=== PATIENT | male | born 1955 | race Caucasian/White ===

== ENCOUNTER 2021-02-26 19:28 | Inpatient (IN) | payer OTHER ==
[~2021-02-26] VITALS: Ht 182.9 cm; Wt 191.6 kg
[~2021-02-26 19:28] MED LIST: ALDACTONE100 MG PO; CARDIZEM CD120 MG PO; CARDIZEM CD240 MG PO; CLOTRIMAZOLE-BE30 ML; COLACE100 MG PO; CORTIZONE-528 GM; DEMADEX20 MG PO; ELIQUIS5 MG PO; FUROSEMIDE 20 M20 MG PO; K-DUR 20 MEQ T20 MEQ PO; LANOXIN 0.250.25 M1 PO; LORTAB 5 MG/5001 TA1 PO; LOTRISONE CREAM; NOHOMEMEDICATIONS; PROAIR HFA8.5 GM INH
[2021-02-26 22:30] VITALS: BP 166/90
[2021-02-26] MEDS ORDERED: DILTIAZEM 24HR360 M1 PO (23:54)
[2021-02-27 00:29] LABS: CHOLESTEROL 160 mg/dL (<200); HDL CHOLESTEROL 36 mg/dL (>40); LDL CHOLESTEROL 103 mg/dL (<100); SERUM ASSESSMENT Clear; TC:HDL 4.4 Ratio (Not establshd); TRIGLYCERIDE 107 mg/dL (<150); VLDL 21 mg/dL (<40)
[2021-02-27 04:27] VITALS: BP 148/90
[2021-02-27 06:05] LABS: HEMATOCRIT 45.1 % (42.0-52.0); HEMOGLOBIN 13.9 gm/dL (14.0-18.0); MCH 26.5 pg (26.0-34.0); MCHC 30.9 g/dL (28.0-37.0); MCV 85.6 fL (80.0-100.0); RBC 5.27 mil/uL (4.50-6.00); WBC 9.2 thou/uL (4.0-11.0)
--- NOTE | 2021-02-27 06:43 | NUR ---
PATIENT IS A NEW ADMISSION TO THE UNIT THIS SHIFT. HE ARRIVED VIA C[facility] IN [facility] AND WAS ABLE TO TRANSFER TO THE BED AND CHAIR WITH ASSISTANCE INCIDENT FREE. PATIENT IS ALERT AND ORIENTED AND WILL BE ABLE TO CALL APPROPRIATELY FOR NEEDS AND PARTICIPATE IN ADMISSION. PATIENT IS CURRENTLY ON BIPAP WHICH HE HAS TOLERATED FROM APPROXIMATELY MIDNIGHT. NO COMPLAINTS OF PAIN (CHEST OR OTHERWISE). NURSE HAS COMPLETED ADMISSION AND INITIATED PLAN OF CARE.
[2021-02-27 08:15] VITALS: BP 138/79
--- NOTE | 2021-02-27 08:57 | EKG ---
[address] [address] ELECTROCARDIOGRAM REPORT Name: SHIRLEY MENSAH Room #: 205- ADM IN M.R.#: [id number] Admission: 02/26/21 Attend Phys: Keya Parker Discharge: Date of : 59 Report #: [id number] [facility] Test Date: 2021-02-27 Test Time: 07:25:09 Pat Name: SHIRLEY MENSAH Department: Room: 205 P Gender: M Battery Starter: ADELA : 1955 Requested By: Bethany Duncan Order Number: [id number] MD: Chirag Miguel Measurements Intervals [place] Rate: 78 P: IN: QRS: 51 QRSD: 115 T: 206 QT: 390 QTc: 445 Interpretive Statements Atrial fibrillation Nonspecific intraventricular conduction delay Nonspecific ST and T wave abnormality Compared to ECG 09/27/2012 16:04:29 No significant change was found Electronically Signed On 02-27-2021 8:56:59 CDT by Chirag Miguel [email or web address] <ELECTRONICALLY SIGNED> By: Chirag Miguel MD, [facility] 02/27/21 0856 25 4 Chirag Miguel MD, FACC /EPI
[2021-02-27 10:09] LABS: CALCIUM 8.7 mg/dL (8.5-10.1); POTASSIUM 4.3 mmol/L (3.5-5.1)
[2021-02-27 10:50] LABS: BE(vivo) 13.1 mmol/L (-2 to +3); HCO3 46.5 mmol/L (22.0-26.0); PO2 65.9 mmHg (80.0-100.0); sO2 86.8 % (92.0-98.0)
[2021-02-27 10:51] LABS: PCO2 116.4 mmHg (35.0-45.0); pH 7.219 (7.360-7.450)
[2021-02-27 11:40] VITALS: BP 148/78
[2021-02-27 12:24] LABS: BE(vivo) 14.4 mmol/L (-2 to +3); HCO3 46.4 mmol/L (22.0-26.0); PO2 61.1 mmHg (80.0-100.0); sO2 86.6 % (92.0-98.0)
--- NOTE | 2021-02-27 12:24 | 2DMMODE ---
[facility] [place] [address] 2 D/M-MODE ECHOCARDIOGRAM Name: SHIRLEY MENSAH Room #: 205-P ADM IN M.R.#: [id number] Admission: 02/26/21 Attend Phys: Keya Parker Discharge: Date of : 59 Report #: [id number] THIS REPORT FOR: cc: Michael Neville James L. DO Lundgren, Craig H. MD [facility] ~ APPROVED REPORT Study performed: 02/27/2021 08:49:53 EXAM: Comprehensive 2D, Doppler, and color-flow Echocardiogram Patient Location: In-Patient Status: routine BSA: 3.07 HR: 67 bpm BP: 148/90 mmHg Rhythm: Atrial Fibrillation Other Information Study Quality: Poor/Exam done with patient in recliner Technically limited study due to super morbid obesity. Indications Chest pain, SOB, elevated troponin, NSTEMI. Hx: Afib, chronic respiratory failure. Echo Enhancing Agent Indication: Endocardial border delineation Agent(s) / Amount(s) Used: Optison 7 cc 2D Dimensions IVSd: 11.00 (7-11mm) LVOT Diam: 23.00 (18-24mm) LVDd: 49.00 mm PWd: 12.00 (7-11mm) Ascending Ao: 40.00 (22-36mm) LVDs: 39.00 (25-40mm) Left Atrium: 43.00 (27-40mm) Aortic Root: 35.76 mm Aortic Valve AoV Peak Maxim.: 1.85 m/s AO Peak Gr.: 13.65 mmHg LVOT Max P.21 mmHg LVOT Max V: 1.14 m/s [facility] [address] [place] [address] 2 D/M-MODE ECHOCARDIOGRAM Name: RODRICKSHIRLEY Romero Room #: 205-P [facility] IN [facility]#: [id number] Admission: 02/26/21 Attend Phys: Keya Gutierrez Discharge: Date of : 59 Report #: [id number] Vmax: 2.65 cm2 Mitral Valve MV Decel. Time: 236.71 ms Pulmonary Valve PV Peak Maxim.: 1.32 m/s PV Peak Gr.: 6.95 mmHg Tricuspid Valve TR Peak Maxim.: 2.28 m/s TR Peak Gr.: 21.00 mmHg Left Ventricle Left ventricle is mildly dilated. There is normal LV segmental wall motion. Mild concentric left ventricular hypertrophy. Left ventricular systolic function is normal. LVEF is 60-65%. This study is not technically sufficient to allow evaluation of the LV diastolic function due to atrial fibrillation. Right Ventricle Right ventricle is not well visualized. Atria The left atrium size is normal. Right atrium is not well visualized. Aortic Valve Aortic valve is trileaflet; mildly calcified. No aortic regurgitation is present. There is no aortic valvular stenosis. Mitral Valve The mitral valve is normal in structure. There is no mitral valve regurgitation noted. No evidence of mitral valve stenosis. Tricuspid Valve The tricuspid valve is normal in structure. Trace tricuspid regurgitation. Pulmonic Valve The pulmonary valve is normal in structure. There is no pulmonic valvular regurgitation. Estimated PAP is 25-30mmHg. Great Vessels The aortic root is normal in size. The ascending aorta is mildly dilated (4.0cm). IVC is not visualized. [facility] [address] [place] [address] 2 D/M-MODE ECHOCARDIOGRAM Name: SHIRLEY MENSAH Room #: [address] [place] [address] IN ..#: [id number] Admission: 02/26/21 Attend Phys: Keya Gutierrez Discharge: Date of : 59 Report #: [id number] Pericardium There is no pericardial effusion noted. <Conclusion> Left ventricular systolic function is normal. There is normal LV segmental wall motion. LVEF is 60-65%. Aortic valve is trileaflet; mildly calcified. No aortic regurgitation or stenosis The mitral valve is normal in structure. No mitral valve regurgitation. There is no pulmonic valvular regurgitation. Estimated pulmonary artery pressure of 25-30mmHg. There is no pericardial effusion noted. <ELECTRONICALLY SIGNED> By: Chirag Miguel MD, [facility] 02/27/2141 0 0941 Chirag Miguel MD, FACC /INF
[2021-02-27 12:25] LABS: PCO2 99.9 mmHg (35.0-45.0); pH 7.285 (7.360-7.450)
--- NOTE | 2021-02-27 13:35 | NUR ---
Nutrition: pt admitted with NSTEMI, acute hypoxic respiratory failure. Currently NPO due to need for BIPAP. Consult received stating obesity. Nsg reports pt upset today about NPO and yelling at people entering room. Does not appear to be optimal time to to address any education needs. BMI 64, extreme class 3 obesity with 2+ generalized edema present. Hx DM, HLD, CHF. A1C pending. Will monitor plan of care, timely diet advance, and followup when appropriate.
[2021-02-27 15:55] VITALS: BP 143/76
--- NOTE | 2021-02-27 18:27 | NUR ---
PT DIFFICULT TO AWAKE THIS AM, PHYSICIAN ORDERED ABG (SEE RESULTS), PT THEN PLACED ON 24 BIPAP. PHYSICIAN KEPT PT NPO. PT URINARY CATHETER OUTPUT 3925 ML. NO BM TODAY. PT EXPRESSED CONCERNS ABOUT HIS NPO STATUS, THIS CONCERNS WERE RELAYED TO PHYSICIAN NO CHANGE IN ORDERS.
[2021-02-27 20:15] VITALS: BP 138/71
--- NOTE | 2021-02-27 21:51 | NUR ---
ASSUMED PT CARE AT 1900, PT IS ALERT, AWAKE, ORIENTEDX3, AFIB ON TELE, STORAGE WHARFAGE CLERK NOTIFIED ON NPO STATUS, OK TO GIVE MEDS WITH SIP OF WATER, REMAINS AFIB, RATE CONTROLLED IN THE 80S, REMAINS ON BIPAP, TOLERATING WELL, DENIES PAIN OR DISCOMFORT, MEDS GIVEN PER MAR, ASSESSMENTS CHARTED, HOYT INTACT DRAINING YELLOW CLEAR URINE, [facility] FALL PRECAUTIONS IN PLACE; CALL LIGHT WITHIN REACH; WILL CONTINUE TO MONITOR PT PER POC
[2021-02-28 04:06] LABS: GLYCOHEMOGLOBIN (HGB A1C) 8.5 % (4.8-5.6)
[2021-02-28 04:45] VITALS: BP 131/74
[2021-02-28 05:07] LABS: CALCIUM 8.7 mg/dL (8.5-10.1); POTASSIUM 4.3 mmol/L (3.5-5.1)
[2021-02-28 07:50] VITALS: BP 149/70
[2021-02-28 11:35] VITALS: BP 128/65
--- NOTE | 2021-02-28 11:36 | EKG ---
[address] [place] [address] ELECTROCARDIOGRAM REPORT Name: SHIRLEY MENSAH Room #: 205- ADM IN M.R.#: [id number] Admission: 02/26/21 Attend Phys: Keya Parker Discharge: Date of : 59 Report #: [id number] [facility] Test Date: 2021-02-28 Test Time: 08:22:40 Pat Name: HSIRLEY MENSAH Department: Room: 205 Gender: M Direct Support Staff Member: SG : 1955 Requested By: Chirag Miguel Order Number: [id number] MD: Chirag Miguel Measurements Intervals [place] Rate: 83 P: OK: QRS: 39 QRSD: 111 T: 192 QT: 340 QTc: 400 Interpretive Statements Atrial fibrillation Abnormal R-wave progression, late transition Nonspecific T abnormalities Compared to ECG 02/27/2021 07:25:09 No significant changes found Electronically Signed On 02-28-2021 11:36:36 CDT by Chirag Miguel [email or web address] <ELECTRONICALLY SIGNED> By: Chirag Miguel MD, [facility] 02/28/21 1136 821 1 Chirag Miguel MD, FACC /EPI
[2021-02-28 15:50] VITALS: BP 145/71
--- NOTE | 2021-02-28 18:42 | NUR ---
PT REMOVED BIPAP MIDMORNING. RESPIRATORY ATTEMPTED TO PUT PT BACK ON, PT REFUSED STATING HE ONLY NEEDS BIPAP AT NIGHT TIME. PT RECEIVED A DIET ORDER TODAY AND REMAINED ON A 1500 ML FLUID RESTRICTION. PT WAS INFORMED OF THE RESTRICTION AND MADE COMMENTS THAT HE WOULD INFORM THE EVENING NURSE THAT HE HAD NOT HAD THAT MUCH FLUID.
[2021-02-28 20:20] VITALS: BP 145/61
[2021-02-28 23:18] VITALS: BP 145/61
[2021-03-01 04:27] VITALS: BP 144/65
--- NOTE | 2021-03-01 04:43 | NUR ---
ASSUMED PT CARE AT 1900, ALERT AND ORIENTEDX4, AFIB ON TELE, HR CONTROLLED, REMAINED ON BIPAP AT HS, TOLERATING WELL, ASSESSMENTS CHARTED, DENIES PAIN OR SOB, ADEQUATE URINE OUTPUT FROM HOYT CATHETER, NO NEEDS AT THIS TIME, WILL CONTINUE TO MONITOR PER POC
[2021-03-01 07:55] VITALS: BP 124/79
[2021-03-01 11:50] VITALS: BP 157/86
[2021-03-01 16:00] VITALS: BP 136/58
[2021-03-01 20:07] VITALS: BP 139/72
[2021-03-02 03:32] LABS: BUN 37 mg/dL (7-18); CALCIUM 9.6 mg/dL (8.5-10.1); CHLORIDE 90 mmol/L (98-107); CREATININE 1.1 mg/dL (0.7-1.3); GLUCOSE 247 mg/dL (74-106); POTASSIUM 3.9 mmol/L (3.5-5.1); SODIUM 135 mmol/L (136-145)
[2021-03-02 03:36] LABS: CO2 > 45 mmol/L (21-32)
[2021-03-02 04:06] VITALS: BP 137/75
--- NOTE | 2021-03-02 07:47 | NUR ---
alert and oriented, afib on tele, hr controlled, remained on bipap at hs, tolerated well, critical co2 called to machine feeder chicken boner, no new orders received, no complains, passed on report
[2021-03-02 08:05] VITALS: BP 150/79
[2021-03-02 11:40] VITALS: BP 152/86
[2021-03-02 15:15] VITALS: BP 146/80
--- NOTE | 2021-03-02 17:21 | NUR ---
Met with patient who reports he resides in [place] in home alone. All needs on one level. Patient has cpap at home and home oxygen via [employer]. He is independent with ambulation. Cont to drive. PCP Dr Neville. Discussed in los possible HH care. [place] [facility] [place] however patient needs to have met deductable and out of pocket before insurance coverage. Patient has not met out of pocket therefor out of pocket cost to patient for each discipline is $60. Patient wants to see how he progresses prior to commit to paying.
[2021-03-02 20:28] VITALS: BP 129/77
[2021-03-03 04:12] LABS: BUN 42 mg/dL (7-18); CALCIUM 9.8 mg/dL (8.5-10.1); CHLORIDE 89 mmol/L (98-107); CREATININE 1.3 mg/dL (0.7-1.3); GLUCOSE 189 mg/dL (74-106); POTASSIUM 3.2 mmol/L (3.5-5.1); SODIUM 135 mmol/L (136-145)
[2021-03-03 04:28] LABS: CO2 > 45 mmol/L (21-32)
[2021-03-03 05:02] VITALS: BP 133/65
--- NOTE | 2021-03-03 07:40 | NUR ---
PT SAT UP IN CHAIR ALL NIGHT. AFIB ON TELE. RATE CONTROLLED. VSS. AFEBRILE. HOYT TO DD WITH GOOD URINE OUTPUT. PT ENCOURAGED TO KEEP BLE ELEVATED TO REDUCE SWELLING. PT GOT UP TO BTR W/ ASSISTANCE THIS MORNING AND HAD A BOWEL MOVEMENT. TOLERATED ACTIVITY WELL. POTASSIUM REPLACED PER ELECTROLYTE PROTOCOL. REPORT GIVEN TO ONCOMING NURSE.
[2021-03-03 08:05] VITALS: BP 139/79
[2021-03-03 11:21] VITALS: BP 145/88
[2021-03-03 16:29] VITALS: BP 123/83
[2021-03-03 19:40] VITALS: BP 134/83
[2021-03-04 04:22] LABS: BUN 43 mg/dL (7-18); CALCIUM 9.3 mg/dL (8.5-10.1); CHLORIDE 85 mmol/L (98-107); CREATININE 1.1 mg/dL (0.7-1.3); GLUCOSE 179 mg/dL (74-106); POTASSIUM 3.5 mmol/L (3.5-5.1); SODIUM 132 mmol/L (136-145)
--- NOTE | 2021-03-04 04:29 | NUR ---
RECEIVED PATIENT AT 1900.PATIENT IS ALERT AND ORIENTED X4.ON NASAL CANNULA AT 8LPM, SATURATING WELL.WAS PLACED ON BIPAP AT NIGHT DURING SLEEP TIME BY RT ON DUTY AT 50%FIO2.HAD EPISODE OF BLOODY STOOL DURING THE DAY SHIFT, PER FLIGHT CREW SCHEDULER TO HOLD THE NIGHT DOSE OF APIXABAN.ALL NEEDS ATTENDED.TO CONTINOUSLY MONITOR.
[2021-03-04 05:18] LABS: CO2 > 45 mmol/L (21-32)
[2021-03-04 05:22] LABS: HEMATOCRIT 49.4 % (42.0-52.0); HEMOGLOBIN 15.7 gm/dL (14.0-18.0); MCH 26.2 pg (26.0-34.0); MCHC 31.8 g/dL (28.0-37.0); MCV 82.3 fL (80.0-100.0); WBC 11.4 thou/uL (4.0-11.0)
[2021-03-04 07:34] VITALS: BP 114/58
[2021-03-04 11:39] VITALS: BP 139/84
[2021-03-04 15:11] VITALS: BP 143/68
--- NOTE | 2021-03-04 16:46 | NUR ---
Spoke with patient regarding post acute care. He is agreeable for referral to acute rehab unit. [facility], [facility] are not in network. [facility] is in network. Patient agreeable for [facility], he has a family member who has been there in past. Faxed referral for review. [facility] reports patient needs to be stable on 6 liters oxygen. No Bipap during day.
--- NOTE | 2021-03-04 17:50 | NUR ---
PT IS ALERT AND ORIENTED X4. PT CURRENTLY ON 8L HIGH FLOW NC. AFIB ON THE MONITOR. 2+ EDEMA TO BLE. PT IS A MAX ASSIST TO STAND AND UNSTEADY. PT HAS BEEN UP IN CHAIR ALL DAY AND STATES THAT HE USUALLY SLEEPS IN A CHAIR. NO COMPLAINTS OF PAIN OR DISCOMFORT AT THIS TIME. WILL CONTINUE TO MONITOR.
[2021-03-04 19:38] VITALS: BP 134/56
[2021-03-04 20:05] VITALS: BP 134/56
--- NOTE | 2021-03-05 03:07 | NUR ---
PATIENT RESTING IN BEDSIDE CHAIR ON HIS ROOM. HE IS AAOX4. PATIENT STATES THAT HE IS HAVING SOME MILD PAIN IN HIS LOWER EXTREMETIES. NOTED THAT PATIENT HAS 1-2+ EDEMA TO BLE. PATIENT STATES THAT HE IS GETTING TIRED AND WANTS TO GET HIS CPAP ON A GO TO BED. PATIENT VSS. COOPERATIVE AND COMPLIES WITH ALL MEDICATION AND TREATMENT. PATIENT HAS ALL SAFETY PRECAUTIONS IN PLACE. DENIES ANY OTHER NEEDS. WILL CONTINUE TO MONITOR FOR CHANGES IN PATIENT STATUS.
[2021-03-05 03:46] VITALS: BP 133/70
[2021-03-05 05:59] LABS: BUN 48 mg/dL (7-18); CALCIUM 9.3 mg/dL (8.5-10.1); CHLORIDE 82 mmol/L (98-107); CREATININE 1.3 mg/dL (0.7-1.3); GLUCOSE 184 mg/dL (74-106); SODIUM 129 mmol/L (136-145)
[2021-03-05 06:18] LABS: CO2 > 45 mmol/L (21-32); POTASSIUM 2.9 mmol/L (3.5-5.1)
--- NOTE | 2021-03-05 06:25 | NUR ---
PT K 2.9 (ON PROTOCOL) CO2 > 45. 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 PATIENT AAOX4. NO CHANGE IN STATUS NOTED. WILL CONTINUE TO MONITOR.
[2021-03-05 07:35] VITALS: BP 134/69
--- NOTE | 2021-03-05 10:54 | NUR ---
Assumed care of pt this AM. Pt is A&O x4, on 8L high flow cannula. Afib on the monitor. Pt denies any chest pain. Pt comfortably in chair, which he prefers. Discussed 1500mL fluid restriction w/ pt & he understands & is agreeable. Pt max assist when up. Daily weight on pt. Plan to decrease O2 as tolerated to get pt to baseline. Will continue to assess needs.
--- NOTE | 2021-03-05 11:14 | NUR ---
[facility] is accepting. Patient needs to be on 6 liters oxygen and more stable. Updated patient. He is concerned he has shaky/jerking movements that started a few months ago. he reports he has told phys of these symptoms. Patient agreeable to [facility] at [facility]. Updated [facility].
[2021-03-05 11:49] VITALS: BP 133/71
[2021-03-05 15:55] VITALS: BP 127/73
[2021-03-05 20:15] VITALS: BP 144/69
[2021-03-06 03:51] VITALS: BP 120/76
--- NOTE | 2021-03-06 04:37 | NUR ---
RECEIVED THIS PATIENT AT 1900H.PATIENT IS ALERT AND ORIENTED X4.ON NASAL CANNULA AT 6LPM, SATURATING WELL.WAS CONNECTED TO BIPAP DURING SLEEP BY RT ON DUTY AT 50%FIO2.ALL NEEDS ATTENDED.TO CONTINOUSLY MONITOR.
[2021-03-06 06:30] LABS: CALCIUM 9.1 mg/dL (8.5-10.1)
--- NOTE | 2021-03-06 07:03 | NUR ---
PATIENT STILL SLEEPING AT THIS TIME AND STILL ON BIPAP.WEIGHT TO BE CHECKED LATER IN THE MORNING ONCE PATIENT GETS UP.
[2021-03-06 08:00] VITALS: BP 120/78
--- NOTE | 2021-03-06 10:10 | NUR ---
Followup: admit with NSTEMI, CHF, and acute respiratory failure. Requires NC and BIPAP. Wt at admit 472 lb, 423 lb standing on 03/04 and new standing wt is pending. A1C 8.5, had carb control diet ordered and diabetic medications. Hyponatremia is worsening, consider fluid restriction. Intake is adequate. Will address nutrition education needs at more appropriate time. Remains low nutrition risk.
[2021-03-06 13:07] LABS: URINE BILIRUBIN NEGATIVE (Negative); URINE BLOOD 1+ (Negative); URINE CLARITY CLEAR; URINE COLOR YELLOW; URINE GLUCOSE-RANDOM* NEGATIVE (Negative); URINE KETONES NEGATIVE (Negative); URINE LEUKOCYTES-REFLEX TRACE (Negative); URINE PROTEIN (DIPSTICK) 1+ (Negative); URINE UROBILINOGEN >= 8.0 E.U./dl (0.2-1.0)
[2021-03-06 13:08] LABS: URINE NITRITE-REFLEX POSITIVE (Negative)
--- NOTE | 2021-03-06 13:12 | NUR ---
Assumed care of pt this AM. Pt is A&O x4, on 5L NC. AFib on the monitor. Pt choked on K+ pills this AM, spoke w/ Dr. Catalan about getting orders for different method of administration. Pt c/o discomfort at the quinonez site, reporting some burning. Urine sent for culture & catheter repositioned. Will continue to assess pt needs throughout shift.
[2021-03-06 13:35] LABS: SQUAMOUS 0-3 Few /LPF (0-3)
[2021-03-06 13:36] LABS: BACTERIA-REFLEX 1-9 Few /HPF (None Seen); CASTS None Seen /LPF (None Seen); URINE RBC 3-10 Few /HPF (NONE SEEN); URINE WBC-REFLEX 0-5 Rare /HPF (0-5)
[2021-03-06 13:37] LABS: CRYSTALS None Seen /LPF (None Seen)
[2021-03-06 16:30] VITALS: BP 149/78
--- NOTE | 2021-03-06 17:16 | NUR ---
[facility] is accepting but still working on obtaining ins auth. Likely no dc til Tuesday. Pt now on 5liters of o2. Anticipate dc to acute rehab at [facility] on Tuesday. All parties updated.
[2021-03-06 19:30] VITALS: BP 141/63
--- NOTE | 2021-03-07 03:58 | NUR ---
ASSUMED PATIENT CARE AT 1900H.PATIENT IS ALERT AND ORIENTED X4.ON NASAL CANNUL AT 5LPM, SATURATING WELL.WAS CONNECTED ON BIPAP AT NIGHT DURING SLEEP.STILL WITH HOYT CATHETER INTACT.NO COMPLAINTS OF PAIN.NOT IN DISTRESS.WILL CONTINUE TO MONITOR.
[2021-03-07 04:57] VITALS: BP 141/62
[2021-03-07 05:49] LABS: CREATININE 1.1 mg/dL (0.7-1.3); MAGNESIUM 2.6 mg/dL (1.8-2.4); POTASSIUM 3.3 mmol/L (3.5-5.1)
[2021-03-07 07:31] VITALS: BP 142/68
[2021-03-07 11:47] VITALS: BP 136/67
[2021-03-07 15:38] VITALS: BP 136/75
--- NOTE | 2021-03-07 18:41 | NUR ---
Assumed care of pt this AM. Pt is A&O x4, on 5L NC. Afib on the monitor. Pt agreeable today to have the quinonez removed after discussing w/ Dr. Catalan. Pt up w/ walker & assist to the toilet after removal. Pt small BM dark. Pt denying any pain.
[2021-03-07 20:15] VITALS: BP 137/70
--- NOTE | 2021-03-08 02:12 | NUR ---
PATIENT RESTING IN RECLINER DURING SHIFT. 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 PLAN FOR DISCHARGE IS TO [place]HAB.
[2021-03-08 04:22] LABS: CALCIUM 9.1 mg/dL (8.5-10.1); POTASSIUM 3.2 mmol/L (3.5-5.1)
[2021-03-08 04:45] VITALS: BP 137/85
[2021-03-08 07:45] VITALS: BP 137/67
[2021-03-08 11:42] VITALS: BP 143/66
[2021-03-08 15:19] VITALS: BP 127/82
[2021-03-08 20:15] VITALS: BP 138/76
--- NOTE | 2021-03-09 03:20 | NUR ---
PATIENT RESTING IN CHAIR DURING SHIFT. DOES NOT USE THE BED. PATIENT IS GETTING UP TO BATHROOM BY HIMSELF, NEEDS ASSIST WITH WIPING. PATIENT STATES HE IS GOING HOME IN THE AM INSTEAD OF GOING TO REHAB FACILITY.
[2021-03-09 04:45] VITALS: BP 140/76
[2021-03-09 08:06] VITALS: BP 136/67
[2021-03-09] MEDS ORDERED: METFORMIN HCL500 MG PO (09:35)
[2021-03-09] MEDS ORDERED: CIPROFLOXACIN500 M1 PO (09:35)
[2021-03-09] MEDS ORDERED: MIRALAX17 GM PO (09:35)
[2021-03-09] MEDS ORDERED: GLUCOTROL5 MG PO (09:35)
--- NOTE | 2021-03-09 10:22 | NUR ---
Assumed care of pt this AM. Pt is A&O x4, on 3L NC. Denies any chest pain. AFib on the monitor this morning. Plan is to discharge home today. Around 10am, pt having runs of PVCs on the monitor. Spoke w/ Dr. Catalan, put in STAT lab orders; paged cardiology office to notify. Waiting to hear back. Will continue to assess pt neesd.
[2021-03-09 10:37] LABS: MAGNESIUM 2.2 mg/dL (1.8-2.4)
[2021-03-09 10:57] VITALS: BP 136/67
[2021-03-09 11:02] VITALS: BP 136/67
[2021-03-09 11:48] VITALS: BP 139/91
[2021-03-09 13:47] VITALS: BP 136/67
--- NOTE | 2021-03-09 15:31 | NUR ---
From weekend cont to wait for auth from [facility]. Patient notified phys today he feels he can dc home. Met with patient who reports can dc home. Discussed [facility] home [facility] care and patient reports he does not want that arranged. Questioned patient twice regarding transfer to [facility]. Updated to patient we received auth and can change plan from home to [facility] for continued therapy. Patient declined and declined home health care. Updated phys. Patient has home oxygen via [employer]. He does not have a tank for transport home today. Gave patient an [employer] tank. Updated [employer] of use of tank. No further needs.
== END 2021-03-09 13:48 | disposition home or self-care (01) | DRG 291 ==
LOC: 2N 19:28
PROVIDERS: Hospitalist; Internal Medicine; Nurse Practitioner; Nurse Practitioner Family; ADMIT Hospitalist; ATTEND Hospitalist
DX: I11.0 Hypertensive heart disease with heart failure (principal); I50.31 Acute diastolic (congestive) heart failure; J96.02 Acute respiratory failure with hypercapnia; I48.19 Other persistent atrial fibrillation; E87.1 Hypo-osmolality and hyponatremia; N39.0 Urinary tract infection, site not specified; Z79.01 Long term (current) use of anticoagulants; N40.0 Benign prostatic hyperplasia without lower urinary tract symptoms; E78.5 Hyperlipidemia, unspecified; E66.01 Morbid (severe) obesity due to excess calories; Z20.822 Contact with and (suspected) exposure to COVID-19
CPT/HCPCS: 10081